=== PATIENT | male | born 2000 | race Caucasian/White ===

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

== ENCOUNTER 2021-03-17 02:24 | Emergency (ER) | payer OTHER, MEDICAID, SELFPAY ==
[2021-03-17 02:26] VITALS: BP 135/82; PULSE 90; RESP 16; TEMP 36.8; O2SAT 99; BMI 27.3
--- NOTE | 2021-03-17 02:37 | XR_ITS ---
PROCEDURE INFORMATION: Exam: XR Right Scapula Exam date and time: 03/17/2021 2:37 AM Age: 20 years old Clinical indication: Injury or trauma; Other: Lifting injury; Work related; Sprain or strain; Scapula; Right; Injury date: 03/17/2021; Additional info: Pain after lifting box at work TECHNIQUE: Imaging protocol: XR Right scapula, complete. COMPARISON: CR XR SHOULDER RT MIN 2V 03/17/2021 2:39 AM FINDINGS: Bones/joints: Normal. Soft tissues: Normal. IMPRESSION: No acute findings.
--- NOTE | 2021-03-17 02:37 | XR_ITS ---
PROCEDURE INFORMATION: Exam: XR Right Shoulder Exam date and time: 03/17/2021 2:37 AM Age: 20 years old Clinical indication: Injury or trauma; Other: Lifting injury; Work related; Sprain or strain; Right; Injury date: 03/17/2020; Injury details: Lifted object at work and now shoulder and scapula pain; Additional info: Pain after lifting box at work TECHNIQUE: Imaging protocol: XR Right shoulder. Views: 2 or more views. COMPARISON: No relevant prior studies available. FINDINGS: Bones/joints: Normal. Soft tissues: Normal. IMPRESSION: No acute findings.
--- NOTE | 2021-03-17 02:54 | HMH.EDGENADL ---
ED Disposition Clinical Impression: Thoracic back sprain Qualifiers: Encounter type: initial encounter Qualified Code(s): S23.9XXA - Sprain of unspecified parts of thorax, initial encounter Disposition: Home, Self-Care Condition on Discharge: Good Instructions: DI for Acute Pain -- Adult Additional Instructions: ice alt with heat over the next few days and use meds and see pcp for follow up Prescriptions: Meloxicam [Mobic 15 mg tab] 15 mg PO DAILY #10 tab Transmission Status: Pending to [facility] Referrals: Claudia Payton APRN [Primary Care Provider] - - Critical Care Critical Care Time: No Attestation: On 03/17/21, the high probability of a clinically significant, sudden or life threatening deterioration of the following system(s) required my full and direct attention, intervention and personal management. The time I documented below is in addition to time spent performing reported procedures but includes the following listed in this critical care notation. Medical Decision Making - Medical Records Medical records reviewed: Yes: I reviewed the patient's medical records. - Jose Antonio Inquiry Pt receiving controlled substance: No Vital Signs: 03/17/21 02:26 Temperature 98.3 F Temperature Source Oral Pulse Rate [Right] 90 Respiratory Rate 16 Blood Pressure [Right Arm] 135/82 Blood Pressure Mean [Right Arm] 99 02 Sat by Pulse Oximetry 99 - Lab Data Lab results reviewed: Yes: I reviewed the patient's lab results. Orders (Tests/Meds): ED MEDICATIONS Discontinued Medications Generic Name Dose Route Start Last Admin Trade Name Freq PRN Reason Stop Dose Admin Ketorolac Tromethamine 60 mg 03/17/21 02:37 03/17/21 02:39 Ketorolac 60mg/2ml Vial IM 03/17/21 02:38 60 mg ONCE ONE Administration Methylprednisolone Sodium Succinate 125 mg 03/17/21 02:36 03/17/21 02:39 Methylprednisolone Sod Succ 125mg Vial IV 03/17/21 02:37 125 mg ONCE ONE Administration - Radiology Data #1 Image(s): Shoulder Image Reviewed: Yes I have reviewed radiologist's interpretation Preliminary Findings: No Fracture Seen Medical Decision Narrative: has workman comp injury with prob- m/s type issues no jt abn with neg xrays - workman comp forms completed General Adult HPI - General Chief complaint: PAIN Stated complaint: Pain in rt shoulder;lifted something at work Time Seen by Provider: 03/17/21 02:54 Mode of Arrival: Ambulatory Source of Information: Patient, Medical Record Limitations: No Limitations Description of Symptoms (Recalled from ER Triage Doc. by RN): pt states was lifting a box above his head and feel his rt shoulder pop . pt c/o rt shoulder pain - History of Present Illness HPI narrative: at work - lifting box and felt pop rt scapular area with pain and dec rom Onset (ago): hour(s) Location: back Severity: moderate Associated symptoms: denies other symptoms Treatments prior to arrival: none - Related Data Previous Rx's Medication Instructions Recorded Meloxicam [Mobic 15 mg tab] 15 mg PO DAILY #10 tab 03/17/21 Allergies Allergy/AdvReac Type Severity Reaction Status Date / Time No Known Allergies Allergy Verified 05/04/18 23:13 [facility] History - Hepatitis A Screen Drug use history?: No High risk sexual behaviors?: No History of sexually transmitted infection?: No Currently employed?: No Childcare worker?: No Do you have indoor plumbing?: Yes Do you have electricity?: Yes Attestation statement:: This patient has been screened for Hepatitis A risk factors. I have reviewed the patient's past medical history: Yes Medical History: Denies:: Cancer, Diabetes Mellitus Type 1, Diabetes Mellitus Type 2, Gastrointestinal Bleed, Hypertension, MRSA, Renal Disease, Ulcer Comment: ADHD Other Surgeries: Yes: No Previous Surgery Amputation: No - Social History Smoking Status: Current every day smoker Tobacco Type: cigarettes # Packs/D
[2021-03-17 03:43] VITALS: BP 124/75; PULSE 82; RESP 16; TEMP 36.8; O2SAT 99
== END 2021-03-17 03:44 | disposition home or self-care (01) ==
PROVIDERS: Emergency Provider Emergency Medicine; PCP Nurse Practitioner Family
DX: S23.9XXA Sprain of unspecified parts of thorax, initial encounter (principal); X50.0XXA Overexertion from strenuous movement or load, initial encounter; Y92.63 Factory as the place of occurrence of the external cause; Y99.0 Civilian activity done for income or pay
CPT/HCPCS: 73010; 73030; 96372; 99282

== ENCOUNTER 2023-07-24 17:30 | Emergency (ER) | payer SELFPAY ==
[2023-07-24 17:35] VITALS: BP 149/108; PULSE 67; RESP 20; TEMP 36.6; O2SAT 99; BMI 26.6
--- NOTE | 2023-07-24 17:41 | XR_ITS ---
PROCEDURE INFORMATION: Exam: XR Right Hand Exam date and time: 07/24/2023 5:38 PM Age: 23 years old Clinical indication: Pain; Hand; Right; Additional info: Pain after punching wall yesterday TECHNIQUE: Imaging protocol: Radiologic exam of the right hand. Views: 3 or more views. COMPARISON: No relevant prior studies available. FINDINGS: Bones/joints: No acute fracture or dislocation. Soft tissues: Unremarkable. IMPRESSION: No acute osseous abnormality.
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
[2023-07-24 18:21] VITALS: BP 149/108; PULSE 67; RESP 20; TEMP 36.6; O2SAT 99
--- NOTE | 2023-07-24 18:25 | PC.NURSE ---
ABRASION TO RIGHT HAND CLEANED WITH HIBICLENSE AND STERILE WATER, NEORPORIN AND DRY DRESSING APPLIED
== END 2023-07-24 18:29 | disposition home or self-care (01) ==
PROVIDERS: Emergency Provider Nurse Practitioner; PCP Internal Medicine
DX: M79.641 Pain in right hand (principal); S60.221A Contusion of right hand, initial encounter; W22.8XXA Striking against or struck by other objects, initial encounter
CPT/HCPCS: 73130; 99203; 99212; G0463